=== PATIENT | male | born 1975 | race Caucasian/White ===

== ENCOUNTER 2021-10-10 15:42 | Emergency (ER) | payer MEDICARE, MEDICAID ==
[2021-10-11] MEDS ORDERED: BENZ1TAB96 PO (12:30)
[2021-10-11] MEDS ORDERED: BUSP10TA23 PO (12:30)
[2021-10-11] MEDS ORDERED: QUET300T2 PO (12:30)
[2021-10-11] MEDS ORDERED: LITH600C5 PO (12:30)
[2021-10-11] MEDS ORDERED: QUET200T84 PO (12:35)
[2021-10-11] MEDS ORDERED: OXYB5TAB20 PO (12:35)
[2021-10-11] MEDS ORDERED: CLOZ100T31 PO (12:35)
[2021-10-11] MEDS ORDERED: QUET100T34 PO (12:35)
[2021-10-11] MEDS ORDERED: METO-391 PO (12:35)
== END 2021-10-10 16:26 | disposition left against medical advice (07) ==
LOC: EMS 15:42
DX: Z53.21 Procedure and treatment not carried out due to patient leaving prior to being seen by health care provider (principal)

== ENCOUNTER 2021-10-11 12:02 | Emergency (ER) | payer MEDICARE, OTHER ==
[~2021-10-11] VITALS: Ht 180.3 cm; Wt 84.1 kg
[2021-10-11] MEDS ORDERED: QUET300T2 PO (12:30)
[2021-10-11] MEDS ORDERED: BUSP10TA23 PO (12:30)
[2021-10-11] MEDS ORDERED: BENZ1TAB96 PO (12:30)
[2021-10-11] MEDS ORDERED: LITH600C5 PO (12:30)
[2021-10-11] MEDS ORDERED: METO-391 PO (12:35)
[2021-10-11] MEDS ORDERED: CLOZ100T31 PO (12:35)
[2021-10-11] MEDS ORDERED: QUET200T84 PO (12:35)
[2021-10-11] MEDS ORDERED: QUET100T34 PO (12:35)
[2021-10-11] MEDS ORDERED: OXYB5TAB20 PO (12:35)
[2021-10-11 14:45] VITALS: BP 131/81
[2021-10-11] MEDS ORDERED: PERTUSS(ACELL),DIPH,TET VAC/PF 0.5 ML SYRINGE IM. ONE (15:00)
== END 2021-10-11 15:17 | disposition home or self-care (01) ==
LOC: EMS 12:02
DX: S51.851A Open bite of right forearm, initial encounter (principal); F20.9 Schizophrenia, unspecified; F31.9 Bipolar disorder, unspecified; W54.0XXA Bitten by dog, initial encounter; Y93.89 Activity, other specified; Y92.89 Other specified places as the place of occurrence of the external cause; Y99.8 Other external cause status; Z88.0 Allergy status to penicillin
CPT/HCPCS: 90471; 90715; 99283